=== PATIENT | female | born 1960 | race Caucasian/White ===

== ENCOUNTER 2017-07-30 05:30 | Emergency (ER) | payer OTHER, SELFPAY ==
--- NOTE | 2017-07-30 05:30 | DT_ITS ---
This patient was seen during an EMR downtime July 23, 2017 - July 30, 2017. This patient may have a combination of paper and electronic documentation or all paper documentation. All documentation is viewable within the e-chart portion of [employer] for each patient visit.
--- NOTE | 2017-07-30 09:49 | CT_ITS ---
STUDY: CT ABDOMEN AND PELVIS WITH CONTRAST REASON FOR EXAM: Female, 56 years old. Abdominal pain for one week RADIATION DOSAGE (If Supplied By Facility): CTDIvol = ( 16.94 ) mGy, DLP = ( 1337.49 ) mGycm TECHNIQUE: Transaxial images were obtained from the dome of the diaphragm to the symphysis pubis with oral contrast. 100 ml of Isovue 300 contrast was administered. Sagittal and coronal images were reconstructed. Individualized dose optimization techniques were used for this CT. COMPARISON: 05/09/2013 FINDINGS: There is a pneumatocele at the right lung base. The visualized portions of the heart are within normal limits. There is decreased attenuation of the liver consistent with steatosis. There is a small low-attenuation lesion near the dome of the liver, which may represent a 1 cm cyst. Several large gallstones are present. Normal spleen. Normal pancreas. Normal bilateral adrenal glands. There is a tiny right renal cyst. Normal left kidney. No hydronephrosis, renal or ureteral calculus. Normal visualized stomach. Normal small intestine. There is colon wall thickening involving predominantly the right colon and distal left colon. There are multiple diverticula within the distal left colon. The appendix is visualized and appears normal. There is diffuse atherosclerotic calcification of the abdominal aorta, without a demonstrated aneurysm. Normal inferior vena cava. Normal retroperitoneum. Normal urinary bladder. Normal visualized uterus. Normal abdominal wall. Normal osseous structures. CT/Abdomen/Pelvis WITH Contrast IMPRESSION: Hepatic steatosis. Cholelithiasis. Mild colon wall thickening within the right and left colon may represent colitis. Diffuse diverticulosis within the distal left colon. No bowel obstruction or acute renal pathology. Additional nonacute findings, as detailed above. Electronically Signed: Jesus Burden DO at 10:28 EDT Tel , Service support ,
[2017-07-30 16:47] LABS: Anion Gap 8 (5-15); BUN 37 mg/dL (7-18); BUN/Creat Ratio 33.9 RATIO (10-20); Calcium,Total 10.7 mg/dL (8.5-10.1); Chloride 103 mmol/L (98-107); Creatinine, Serum 1.09 mg/dL (0.55-1.02); EST Glomerular Filtration Rate 56 mL/min (>60); Est Glom Filt Rate - Afr Amer 68 mL/min (>60); Glucose 185 mg/dL (74-106); Potassium 3.7 mmol/L (3.5-5.1); Sodium Level 139 mmol/L (136-145)
[2017-07-31 11:25] LABS: Bedside Glucose 182 mg/dL (70-110)
[2017-07-31 13:47] LABS: Bacteria 0 SEEN /hpf (None Seen); Mucous, Urine 0 SEEN /hpf (<or=2+)
[2017-07-31 13:53] LABS: Color, Urine Yellow (Yellow); Glucose, Dipstick 100 mg/dl (Normal); Ketone-Dipstick Negative (Negative); Leukocyte Esterase-Dipstick 25 /ul (Negative); Nitrite-Dipstick Negative (Negative); Occult Blood-Urine 10 /ul (Negative); Protein-Dipstick Negative (Negative); Specific Gravity, Urine 1.015 (1.002-1.030); Urine Bilirubin Dipstick Negative (Negative); Urine Clarity Sl Cldy (Clear); Urine Urobilinogen Normal (Normal); White Blood Cells 0-5 SEEN /hpf (0-5)
[2017-07-31 13:54] LABS: Red Blood Cells-Urine 0-5 SEEN /hpf (0-5); Squamous Epithelial Cells - UA 0-5 SEEN /hpf (5-10)
[2017-07-31 14:33] LABS: Basophil% 0.2 % (0-1); Eosinophils% 0.7 % (0-5); Hematocrit 39.4 % (37-47); Hemoglobin 12.9 g/dl (12.0-15.0); Lymphocyte % 31.6 % (19-41); Mean Corp Hgb Conc 32.7 g/gl (32-36); Mean Corpuscular Hgb 27.8 pg (27.0-32.0); Mean Corpuscular Volume 84.9 fL (81-99); Mean Platelet Vol. 10.6 fl (6.2-12.0); POSITIVE COUNT NO; POSITIVE DIFFERENTIAL NO; POSITIVE MORPHOLOGY NO; Platelet Count 239 K/mm3 (150-450); RBC Distribution Width CV 14.4 % (11.6-14.6); Red Blood Count 4.64 M/mm3 (4.2-5.4); White Blood Count 5.7 K/mm3 (4.4-11.0)
[2017-07-31 14:34] LABS: Absolute Lymphocyte Count 1.81 X10^3/ul (0.83-4.51); Absolute Neutrophil Count 3.4 X10^3/uL (2.0-7.7); Lymphocyte # 1.81 X10^3/ul (4.0); Neutrophil # 3.37 X10^3/uL (2.7-7.7)
== END 2017-07-30 11:30 | disposition home or self-care (01) ==
PROVIDERS: Emergency Provider Emergency Medicine; Family Provider Family Medicine; PCP Family Medicine
DX: R11.2 Nausea with vomiting, unspecified (principal); R19.7 Diarrhea, unspecified; R10.30 Lower abdominal pain, unspecified; E11.9 Type 2 diabetes mellitus without complications; I10 Essential (primary) hypertension; E78.00 Pure hypercholesterolemia, unspecified; Z87.19 Personal history of other diseases of the digestive system; Z79.899 Other long term (current) drug therapy; Z79.84 Long term (current) use of oral hypoglycemic drugs
CPT/HCPCS: 36415; 74177; 80048; 81001; 82962; 85025; 96374; 99283; Q9967; A4216; J2405

== ENCOUNTER → 2017-07-31 07:19 | Outpatient (CLI) | payer OTHER, SELFPAY | PROVIDERS: Family Provider Family Medicine; PCP Family Medicine; Visit Provider Emergency Medicine | DX: R19.7 Diarrhea, unspecified (principal) | CPT/HCPCS: 87177; 87209; 87493; 87506 ==

== ENCOUNTER → 2018-02-22 14:56 | Outpatient (CLI) | payer OTHER, SELFPAY ==
--- NOTE | 2018-02-22 14:59 | BI_ITS ---
MAMMOGRAPHY - BILATERAL SCREENING REASON FOR EXAM: Female, 57 years old. Routine annual screening examination. PERTINENT HISTORY: Non-contributory. TECHNIQUE: Digital bilateral breast fani (3D mammographic acquisition) in the CC and MLO projections. 2-D mediolateral oblique (MLO) and craniocaudad (CC) views of both breasts were obtained. CAD: Full Field Digital Mammography with Computer Added Detection was performed. COMPARISON: Comparison is made with prior study dated October 14, 2015 and December 04, 2013. FINDINGS: Breast Composition: The breasts are almost entirely fatty. There are no dominant masses or suspicious calcifications. No other significant abnormalities are identified. There has been no significant change since the prior study. BI/SCREENING MAMM (CAD), BILAT IMPRESSION: Stable bilateral screening mammogram. Yearly follow-up mammogram recommended. (A) ASSESSMENT CATEGORY: BIRADS Category 1: Negative. A letter regarding these results will be sent to the patient by the facility within 30 days. Approximately 10% of breast cancers are not detected by mammography. A normal mammogram should not delay biopsy of a clinically suspicious abnormality. [id number] Electronically Signed: Rishabh Kent MD at 9:08 EST Tel [phone], Service support ,
== END ==
PROVIDERS: Family Provider Family Medicine; PCP Family Medicine; Referring Provider Family Medicine; Visit Provider Family Medicine
DX: Z12.31 Encounter for screening mammogram for malignant neoplasm of breast (principal)
CPT/HCPCS: 77063; 77067

== ENCOUNTER → 2018-05-03 05:42 | Outpatient (CLI) | payer OTHER, SELFPAY ==
[2018-05-03 08:07] LABS: ALB/GLOB Ratio 0.9 RATIO (0.9-2.4); AST(SGOT) 58 U/L (15-37); Alanine Aminotransfer ALT/SGPT 62 U/L (13-56); Albumin, Serum 3.6 g/dL (3.2-5.0); Alkaline Phosphatase 53 U/L (45-117); Anion Gap 4 (5-15); BUN 24 mg/dL (7-18); Calcium,Total 9.1 mg/dL (8.5-10.1); Chloride 105 mmol/L (98-107); Cholesterol 120 mg/dL (200); EST Glomerular Filtration Rate 61 mL/min (>60); Est Glom Filt Rate - Afr Amer 74 mL/min (>60); Globulin 3.9 g/dL (2.2-4.2); Glucose 134 mg/dL (74-106); High Density Lipoprotein 42 mg/dL; Protein, Total 7.5 g/dL (6.4-8.2); Sodium Level 138 mmol/L (136-145); Thyroid Stim Hormone (TSH) 1.26 uIU/mL (0.358-3.74); Triglycerides 145 mg/dL; Very Low Density Lipoprotein 29 mg/dL (5-40)
== END ==
PROVIDERS: Family Provider Family Medicine; PCP Family Medicine; Referring Provider Family Medicine; Visit Provider Family Medicine
DX: E11.9 Type 2 diabetes mellitus without complications (principal)
CPT/HCPCS: 36415; 80053; 80061; 84443

== ENCOUNTER → 2019-03-21 05:57 | Outpatient (CLI) | payer OTHER, SELFPAY ==
[2019-03-21 08:01] LABS: ALB/GLOB Ratio 0.8 RATIO (0.9-2.4); AST(SGOT) 55 U/L (15-37); Alanine Aminotransfer ALT/SGPT 82 U/L (13-56); Albumin, Serum 3.6 g/dL (3.2-5.0); Alkaline Phosphatase 72 U/L (45-117); Anion Gap 5 (5-15); BUN 22 mg/dL (7-18); BUN/Creat Ratio 23.1 RATIO (10-20); Calcium,Total 9.7 mg/dL (8.5-10.1); Chloride 106 mmol/L (98-107); Cholesterol 117 mg/dL (200); Creatinine, Serum 0.95 mg/dL (0.55-1.02); EST Glomerular Filtration Rate 64 mL/min (>60); Est Glom Filt Rate - Afr Amer 78 mL/min (>60); Globulin 4.5 g/dL (2.2-4.2); Glucose 158 mg/dL (74-106); High Density Lipoprotein 44 mg/dL; Potassium 3.7 mmol/L (3.5-5.1); Protein, Total 8.1 g/dL (6.4-8.2); Sodium Level 141 mmol/L (136-145); Thyroid Stim Hormone (TSH) 1.14 uIU/mL (0.358-3.74); Triglycerides 118 mg/dL; Very Low Density Lipoprotein 24 mg/dL (5-40)
== END ==
PROVIDERS: PCP Family Medicine; Referring Provider Family Medicine; Visit Provider Family Medicine
DX: E11.9 Type 2 diabetes mellitus without complications (principal)
CPT/HCPCS: 36415; 80053; 80061; 84443

== ENCOUNTER → 2019-03-24 13:55 | Outpatient (CLI) | payer OTHER, SELFPAY ==
[2019-03-25 10:56] LABS: Hepatitis B Surface Antibody Non-Reactive
[2019-03-25 11:01] LABS: Hepatitis C Antibody REACTIVE (Nonreactive)
[2019-03-26 13:57] LABS: Hepatitis B Core Ab Total Negative (Negative)
== END ==
PROVIDERS: PCP Family Medicine; Referring Provider Family Medicine; Visit Provider Family Medicine
DX: R94.5 Abnormal results of liver function studies (principal)
CPT/HCPCS: 36415; 86704; 86706; 86803; 87521

== ENCOUNTER → 2019-03-25 12:04 | Outpatient (CLI) | payer OTHER, SELFPAY ==
--- NOTE | 2019-03-25 14:16 | BI_ITS ---
MAMMOGRAPHY - BILATERAL SCREENING REASON FOR EXAM: Female, 58 years old. Routine annual screening examination. PERTINENT HISTORY: Non-contributory. TECHNIQUE: Digital bilateral breast jennyfer (3D mammographic acquisition) in the CC and MLO projections. 2-D mediolateral oblique (MLO) and craniocaudad (CC) views of both breasts were obtained. CAD: Full Field Digital Mammography with Computer Added Detection was performed. COMPARISON: Comparison is made with prior study dated February 22, 2018 and October 14, 2015. FINDINGS: Breast Composition: The breasts are almost entirely fatty. There are no dominant masses or suspicious calcifications. No other significant abnormalities are identified. There has been no significant change since the prior study. BI/SCREEN MAMM (CAD) W/JENNYFER BILAT IMPRESSION: Stable bilateral screening mammogram. Yearly follow-up mammogram recommended. (A) ASSESSMENT CATEGORY: BIRADS Category 1: Negative. A letter regarding these results will be sent to the patient by the facility within 30 days. Approximately 10% of breast cancers are not detected by mammography. A normal mammogram should not delay biopsy of a clinically suspicious abnormality. [id number] Electronically Signed: Rishabh Kent, at 12:32 EST , Service support ,
[2019-03-28 21:27] LABS: HPV HC, High Risk Negative (Negative)
== END ==
PROVIDERS: PCP Family Medicine; Referring Provider Family Medicine; Visit Provider Family Medicine
DX: Z01.419 Encounter for gynecological examination (general) (routine) without abnormal findings (principal); Z12.31 Encounter for screening mammogram for malignant neoplasm of breast
CPT/HCPCS: 77063; 77067; 87624; 88175; G0145

== ENCOUNTER → 2019-03-26 10:47 | Outpatient (CLI) | payer OTHER, SELFPAY ==
--- NOTE | 2019-03-26 10:49 | US_ITS ---
STUDY: ABDOMINAL ULTRASOUND - RIGHT UPPER QUADRANT REASON FOR VISIT: Female, 58 years old ELEVATED LFT TECHNIQUE: Ultrasound evaluation of the right upper quadrant was performed with real-time and static masters-scale imaging. TECHNICAL QUALITY: Adequate. COMPARISON: None. FINDINGS: Pancreas: Visualized portions of pancreas are unremarkable. Liver: Measures 19.6 cm. Liver shows increased echogenicity. No masses identified. Gallbladder: Multiple gallstones. Negative sonographic Ramos''s sign. Common bile duct: Measures 6 mm. No intraductal stones identified. Right kidney: Measures 11.8 cm in length. Normal contour. 1.5 cm cyst. No masses, stones, or hydronephrosis identified. Renal cortical thickness appears normal. Additional findings: None. US/Liver IMPRESSION: Diffuse hepatic steatosis. Multiple large gallstones, measuring up to 3.8 cm without sonographic evidence of acute cholecystitis. Electronically Signed: Audi Charles, at 16:03 EST Tel , Service support ,
== END ==
PROVIDERS: PCP Family Medicine; Referring Provider Family Medicine; Visit Provider Family Medicine
DX: R94.5 Abnormal results of liver function studies (principal)
CPT/HCPCS: 76705

== ENCOUNTER → 2019-05-12 15:11 | Outpatient (CLI) | payer OTHER, SELFPAY ==
[2019-05-13 10:34] LABS: Hepatitis B Surface Antigen Non-Reactive (Nonreactive)
[2019-05-28 16:07] LABS: Comment 1b (.); HCV Quant. RNA PCR 2420000 IU/mL (.)
[2019-05-28 16:32] LABS: AFP, Tumor Marker 9.9 ng/mL (0.0-8.3); HCV log 10 6.384 (.)
== END ==
PROVIDERS: PCP Family Medicine; Referring Provider Internal Medicine Gastroenterology; Visit Provider Internal Medicine Gastroenterology
DX: B19.20 Unspecified viral hepatitis C without hepatic coma (principal)
CPT/HCPCS: 36415; 82105; 87340; 87522; 87902

== ENCOUNTER → 2019-06-25 07:58 | Outpatient (CLI) | payer OTHER, SELFPAY ==
--- NOTE | 2019-06-24 | TISS_PTH ---
PATIENT: BRI BARAKAT LOC: [facility] U#:[id number] AGE/SX: 64/F ROOM: RE06/25/[address]: Dr. Good Rodriguez MD : 1960 BED: DIS: SPEC #: [id number] RECD: 06/24/19 17:32 STATUS: JAYNE SAMIRA #: [id number] YAKOV: 06/24/19 00:[address]: Good Rodriguez DEPT: SURGICAL PATHOLOGY RECD BY: Pablo Dunn Tissues: Skin of wrist and hand Procedures: Surgery Specimen Level IV HEADER OPERATION: Shave biopsy right wrist PRE-OP DIAGNOSIS: Rule out SCC TISSUE SUBMITTED: Shave biopsy right wrist MICROSCOPIC DIAGNOSIS Skin lesion of right wrist, shave biopsy: Verrucoid keratosis. Solar elastosis. Parakeratosis. See comment. AM:veronica 06/26/19 COMMENT The lesion is transected at the base. Clinical correlation is suggested. MICROSCOPIC DESCRIPTION Slides are reviewed. GROSS DESCRIPTION Received in fixative is one container labeled with the patient's name and designated right wrist. The specimen consists of a light vang shaved biopsy of skin measuring 7 cm in diameter and 1 cm in thickness. The specimen is totally submitted in one cassette for postfixation sectioning. / AM:veronica 06/25/19 TC:5 [facility]: [id number]
== END ==
PROVIDERS: PCP Family Medicine; Referring Provider Family Medicine; Visit Provider Family Medicine
DX: R23.4 Changes in skin texture (principal); L57.8 Other skin changes due to chronic exposure to nonionizing radiation; L57.0 Actinic keratosis; L98.9 Disorder of the skin and subcutaneous tissue, unspecified
CPT/HCPCS: 88305

== ENCOUNTER → 2019-06-30 13:29 | Outpatient (CLI) | payer OTHER, SELFPAY ==
[2019-06-30 13:02] VITALS: BMI 43.2
[2019-06-30 13:59] LABS: International Normalized Ratio 0.9; Prothrombin Time (Protime)PT. 11.9 SECONDS (11.7-14.9)
[2019-06-30 14:12] LABS: AST(SGOT) 47 U/L (15-37); Alanine Aminotransfer ALT/SGPT 83 U/L (13-56); Albumin, Serum 3.9 g/dL (3.2-5.0); Alkaline Phosphatase 80 U/L (45-117); Anion Gap 7 (5-15); BUN 28 mg/dL (7-18); Calcium,Total 10.5 mg/dL (8.5-10.1); Chloride 104 mmol/L (98-107); Creatinine, Serum 1.12 mg/dL (0.55-1.02); EST Glomerular Filtration Rate 53 mL/min (>60); Est Glom Filt Rate - Afr Amer 65 mL/min (>60); Globulin 4.7 g/dL (2.2-4.2); Glucose 187 mg/dL (74-106); Potassium 4.5 mmol/L (3.5-5.1); Protein, Total 8.6 g/dL (6.4-8.2); Sodium Level 140 mmol/L (136-145)
== END ==
PROVIDERS: PCP Family Medicine; Referring Provider Surgery; Visit Provider Surgery
DX: B19.20 Unspecified viral hepatitis C without hepatic coma (principal); K80.20 Calculus of gallbladder without cholecystitis without obstruction
CPT/HCPCS: 36415; 80048; 80076; 85610

== ENCOUNTER → 2019-07-04 14:16 | Outpatient (CLI) | payer OTHER, SELFPAY ==
[2019-06-30 13:02] VITALS: BMI 43.2
--- NOTE | 2019-07-04 14:18 | CT_ITS ---
STUDY: CT ABDOMEN WITH CONTRAST REASON FOR EXAM: Female, 58 years old. PT STATED F/U TO LIVER CYST, PRE MADAY SX RADIATION DOSAGE (If Supplied By Facility): CTDIvol = ( 16.8 ) mGy, DLP = ( 816.60 ) mGycm TECHNIQUE: Transaxial images were obtained post I.V. administration of IV 100mL Isovue-300, and oral contrast. Sagittal and coronal images were reconstructed. Individualized dose optimization techniques were used for this CT. COMPARISON: Comparison is made with prior examination dated July 30, 2017. FINDINGS: Stable 1.7 cm x 2.2 cm pneumatocele in the right lower lobe. Coronary artery calcification. There is decreased attenuation of the liver consistent with steatosis. There are multiple gallstones. Normal spleen. Normal pancreas. Normal bilateral adrenal glands. Tiny cyst in the anterior lower aspect of the right kidney. Normal left kidney. Normal visualized stomach. Normal small intestine. Normal colon. The appendix is visualized and appears normal. There is scattered atherosclerotic calcification of the abdominal aorta, without a demonstrated aneurysm. Normal inferior vena cava. There is borderline retroperitoneal lymphadenopathy with enlarged nodes no greater than 10mm in the short axis diameter. Normal abdominal wall. Normal osseous structures. CT/Abdomen WITH IV Contrast IMPRESSION: Hepatic steatosis. Cholelithiasis. Electronically Signed: Rishabh Kent, at 14:51 EDT , Service support ,
== END ==
LOC: CT 14:18
PROVIDERS: PCP Family Medicine; Referring Provider Surgery; Visit Provider Surgery
DX: K76.89 Other specified diseases of liver (principal)
CPT/HCPCS: 74160; Q9967

== ENCOUNTER 2019-07-15 08:59 | Day surgery (SDC) | payer OTHER, SELFPAY ==
--- NOTE | 2019-06-30 01:33 | HP_ITS ---
Intake Vital Signs 06/30/19 Height 5 ft 5 in 06/30/19 Weight: 230 lb 06/30/19 BMI 38.2 06/30/19 BP 105/71 06/30/19 Blood Pressure Location Rt brachial 06/30/19 Position Sitting 06/30/19 Respiration 18 06/30/19 Pulse 69 06/30/19 Pulse Source Monitor 06/30/19 Temp 96.3 F L 06/30/19 Temp Source Temporal 06/30/19 Pulse Oximetry (%) 97 06/30/19 Oxygen Delivery Method room air Intake Visit Reasons: Abdominal Pain Chief Complaint: abdominal pain Patient Flow Coordinator Required: No Accompanied by: Is patient in pain?: Yes Allergies morphine Allergy (Intermediate, Verified 06/30/19 12:54) headaches Medications Exenatide Microspheres [Bydureon] 2 mg SQ QWEEK 05/10/13 [History Confirmed 06/30/19] Fenofibrate [Tricor] 145 mg PO DAILY 05/10/13 [History Confirmed 06/30/19] Lisinopril/Hydrochlorothiazide [Zestoretic Tablet] 1 tab PO DAILY 05/10/13 [History Confirmed 06/30/19] Multivitamins,Therapeutic [Multivitamin] 1 tab PO DAILY 05/10/13 [History Confirmed 06/30/19] Pravastatin [Pravachol] 40 mg PO DAILY 05/10/13 [History Confirmed 06/30/19] canagliflozin 100 mg tablet ea PO 06/30/19 [History Confirmed 06/30/19] cholecalciferol (vitamin D3) 250 mcg (10,000 unit) tablet 2,500 unit PO DAILY tab 06/30/19 [History Confirmed 06/30/19] citalopram 20 mg tablet ea PO 06/30/19 [History Confirmed 06/30/19] cyanocobalamin-liver extract tab PO DAILY tab 06/30/19 [History] pantoprazole 40 mg tablet,delayed release 40 mg PO DAILY #30 tab 06/30/19 [Rx Confirmed 06/30/19] [facility] Medical History (Updated 06/30/19 @ 13:[address] Malini Calero MD) GERD (gastroesophageal reflux disease) (Acute) Hepatitis C (Acute) Hypertension (Chronic) Hyperlipidemia (Chronic) Diabetes mellitus type II (Chronic) Abdominal pain (Acute) Gallstones (Acute) Surgical History (Updated 06/30/19 @ 12:52 by Nathaly Carbajal) History of (Acute) history surgery left eye (Acute) Family History (Updated 06/30/19 @ 12:53 by Nathaly Carbajal) Mother Diabetes Hypertension Heart disease High cholesterol CVA (cerebral vascular accident) Social History (Updated 06/30/19 @ 13:[address] Malini Calero MD) Smoking Status: Former smoker alcohol intake: never substance use type: does not use HPI HPI HPI: BRI BARAKAT, is a 58 F who presents to the office today for HPI HPI Surgical H&P: Yes HPI: BRI BARAKAT, is a 58 F who presents to the office today for cholelithiasis, epigastric pain, elevated liver functions. Patient states for a couple years she has had some constant epigastric discomfort. Currently rates it a 4/10 but states it can go up to 10+ typically may last at the higher levels about 30 minutes to an hour. Patient states that spicy foods can make it worse or if she is full after meal patient also states that greasy food and cause pain about 2 hours after eating does not really have an issue with better last night did have some pizza and had some diarrhea and abdominal discomfort this morning but nothing last night. Patient denies ever having an EGD. Patient has had elevations of AST and ALT's since 2013 per our records but normal bilirubin. Patient has been seen Dr. Tamez per patient she got a liver elastography done at [facility] which showed some possible fibrosis. Patient was hepatitis C positive on her blood work (child's class A per most recent blood work), appears to be type Ib. Patient has not been able to follow-up with Dr. Tamez due to his office being closed during this COVID. Patient did have a previous CT abdomen pelvis which showed probable liver cyst as well as gallstones about 3.8 cm the largest one that was in 2018, ultrasound liver recently did show fatty liver as well as 2 large gallstones 1 about 3.9 cm the other about 1.9 cm, gallbladder wall 2.3 mm, common bile duct 5.5 mm no pericholecystic fluid no lesions seen in the liver. Patient states she has been taking omeprazole 20 mg p.o. [id number] states it occasionally works but not all the time. Patient states she is able to drink and eat?patient does try to avoid tomatoes/onion/milk and spicy/greasy foods. ROS General General: Yes fatigue; no weight change, colon cancer, breast cancer or weakness HEENT HEENT: Yes eye surgery; no difficulty swallowing, eye injury, swollen glands or hoarseness Endo Endocrine: Yes diabetes mellitus; no thyroid disease, thyroid cancer, Hair loss, heat intolerance or cold intolerance Skin Skin: No rash or changing moles Breast Breast: No left breast lump, right breast lump, breast pain, abnormal mammogram, abnormal US or breast enlargement Musc Musculoskeletal: No back problems, arthritis, rheumatoid arthritis, gout or joint pain Cardio Cardiovascular: Yes high blood pressure; no pacemaker, heart disease, atrial fibrillation, heart attack, heart stent, palpitations, shortness of breat with exertion or chest pain Psych Psychiatric: No depression, anxiety or hearing voices Resp Respiratory: No shortness of breath, No sleep apnea, No cough, No COPD, No asthma, No emphysema, No wheezing Gastro Gastrointestinal: Yes abdominal pain, No nausea or vomiting, Yes diarrhea, Yes constipation, No blood in stool, Yes acid reflux, Yes hemorrhoids, No ulcers, Yes gallbladder problem, No black,tarry stools Jaun Hematologic: No blood thinners, No blood disorders, No bleeding, No anemia, No blood clots Neuro Neurologic: No system reviewed and no additional complaints, except as docu, No as per HPI, No abnormal walking, No abnormal hearing, No abnormal movements, No abnormal speech, No behavioral changes, No burning sensations, No confusion, No seizure-like activity, No unsteadiness, No dizziness, No localized weakness, No frequent falls, No headache(s), No lack of coordination, No loss of vision, No memory loss, No numbness, No other visual disturbances, No radiating pain, No restless legs, No sensory deficit, No fainting, No tingling, No tremor(s), No weakness, No other Exam Const General: cooperative, no acute distress, well developed Nutritional Appearance: obese HENMT Head: atraumatic Resp Effort & Inspection: normal respiratory effort Cardio Rhythm: regular rhythm GI Inspection: non-distended, obesity Palpation: soft, no hernias, tender in the epigastrum, in the LUQ and in the RUQ; Negative for Ramos's sign negative or with no rebound tenderness Neuro General: oriented x3 Extrem General: no clubbing, cyanosis or edema Psych Affect: normal affect Assessment & Plan Problems 1. Cholelithiasis K80.20 2. GERD (gastroesophageal reflux disease) K21.9 3. Hepatitis C B19.20 Plan We will start patient on pantoprazole 40 mg p.o. daily for her reflux as the omeprazole is not really working for her. Also plan to get a CT abdomen pelvis as her CT abdomen pelvis from 2018 did show possible liver cyst, discussed with the radiologist recommended a repeat especially do to her new status of hepatitis C. Also check BMP and liver profile as well as INR. Once work-up is complete we will plan to schedule laparoscopic cholecystectomy with cholangiograms. Reviewed the anatomy with the patient and discussed the procedure: laparoscopic cholecystectomy with cholangiograms, possible open. Review risks including but not limited to bleeding, infection, hernia?discussed with patient she will have a larger incision at the umbilicus due to her large gallstones, bile leak, retained gallstones requiring another procedure ERCP- Endoscopic Retrograde Cholangiopancreatography, injury to another organ (bile ducts, common bile duct, small bowel, etc.) may require transfer to tertiary care facility and conversion to an open procedure. Did discuss with patient that all her pain may not be taken away with removing the gallbladder she does have hepatitis C AST and ALT is are under 100 as well as GERD. All questions were answered patient was agreeable to proceed. Malini Calero M.D. Pager: [phone] [facility] [address] [place] [address], [facility], [address] [place] [address] Office: [phone] Orders Orders: Abdomen WITH IV Contrast Today K76.89 Basic Metabolic Profile (BMP) Today B19.20, K80.20 Liver Profile Today B19.20, K80.20 Prothrombin Time w/INR Today B19.20, K80.20 Medications New: pantoprazole 40 mg PO DAILY 30 tabs 3RF Plan Detail Follow Up Patient is scheduled for CT abdomen pelvis for Sunday and will get lab work done today and will schedule surgery after CT scan completed Coding Level of Care Code Off vis,new,level 3 Diagnoses Cholelithiasis K80.20 GERD (gastroesophageal reflux disease) K21.9 Hepatitis C B19.20 06/30/19 1333 <Electronically signed by Malini Clemons am, MD> Date _ Malini Calero MD I have examined the patient the following changes are noted: Patient CT abdomen pelvis not show obvious liver cyst at this time. Patient states her pain has been tolerable and has gotten a little bit of improvement of symptoms with the pantoprazole which she will continue as well after surgery. We discussed the current risks associated with COVID-19. While it is understood that there is a community spread of COVID-19, the risk of maddie COVID-19 while at [facility] ([facility]) is very low; however, the risk cannot be completely mitigated because of the community spread of the disease. We discussed in detail the risk of exposure to and/or potential harm posed by the COVID-19 virus with having a surgery/procedure at this time versus the risk of delaying the surgery/procedure. It is not possible to know either the risk of delaying the surgery or procedure or chance of getting an infection with perfect accuracy, but a joint decision was made to proceed at this time with the scheduled surgery/procedure as indicated on the consent form. Patient was notified that we will need to comply with any screening or testing [facility] wishes to perform or that surgery may be delayed for any positive results--patient was negative for COVID. Malini Calero M.D. Pager: [phone] [facility] [address] [place] [address], [address] [place] [address] Office: [phone]
[2019-06-30 13:02] VITALS: BMI 43.2
[2019-07-15] VITALS (7 sets, daily range): BP systolic 105–119; BP diastolic 47–79; PULSE 62–80; RESP 16; TEMP 35.9–36.6; O2SAT 93–95; BMI 41.9
--- NOTE | 2019-07-15 | GALL_PTH ---
PATIENT: BRI BARAKAT [place] [id number] AGE/SX: 58/F ROOM: RE07/15/[address]: Dr. Malini Calero MD : 1960 BED: DIS: 07/15/2019 SPEC #: [id number] RECD: 07/15/19 14:55 STATUS: JAYNE SAMIRA #: [id number] YAKOV: 07/15/19 00:[address]: Malini Calero DEPT: SURGICAL PATHOLOGY RECD BY: Alfredo Leiva ENTERED: 07/16/19 12:01 SP TYPE: SALINA GUILLEN DR: Dr. Good Rodriguez MD Tissues: Gallbladder, NOS Procedures: Surgery Specimen Level III HEADER OPERATION: Laparoscopic cholecystectomy PRE-OP DIAGNOSIS: Cholelithiasis; GERD; hepatitis C TISSUE SUBMITTED: Gallbladder MICROSCOPIC DIAGNOSIS Gallbladder, cholecystectomy: Chronic cholecystitis and cholelithiasis. Focal dysplastic epithelium. AM:veronica 07/17/19 MICROSCOPIC DESCRIPTION Slides are reviewed. GROSS DESCRIPTION Received is one container labeled with the patient's name and designated gallbladder. The specimen consists of a previously, partially opened gallbladder measuring 10 cm in length and up to 4 cm in diameter. The external surface is pink-vang, smooth and glistening for the most part. Focally it is granular, hemorrhagic and contains cautery artifact. The gallbladder contains a small amount of hemorrhagic bile. Present in the container are two greenish-brown, multifaceted stones measuring 3 and 4.5 cm in greatest dimension. The mucosa is focally ulcerated. The gallbladder wall measures up to 0.4 cm in thickness. Licensing Coordinator sections from the gallbladder and the cystic duct are submitted in one cassette. / SJ:veronica 07/16/19 TC:5 [facility]: [id number]
--- NOTE | 2019-07-15 09:04 | EKG12_ITS ---
Test Reason : PRE-OP Blood Pressure : / mmHG Vent. Rate : 066 BPM Atrial Rate : 066 BPM P-R Int : 156 ms QRS Dur : 098 ms QT Int : 424 ms P-R-T Axes : 029 -34 -02 degrees QTc Int : 444 ms Normal sinus rhythm Left axis deviation Abnormal ECG Confirmed by MOSES TOPETE, ZEKE ([id number]), editor at large ELIZABETH CASTILLO ([id number]) on 07/17/2019 3:14:49 PM Referred By: Malini Calero Confirmed By:ZEKE LOPES MD
[2019-07-15 09:27] LABS: Hematocrit 40.8 % (37-47); Mean Corp Hgb Conc 31.9 g/dL (32-36); Mean Corpuscular Hgb 27.5 pg (27.0-32.0); Mean Corpuscular Volume 86.3 fL (81-99); Mean Platelet Vol. 10.4 fl (6.2-12.0); Platelet Count 213 K/mm3 (150-450); RBC Distribution Width SD 43.9 fl (35.1-43.9); Red Blood Count 4.73 M/mm3 (4.2-5.4); White Blood Count 7.7 K/mm3 (4.4-11.0)
[2019-07-15] MEDS: Lactated Ringers 1,000 ML 100 ML IV (09:40)
[2019-07-15 10:00] LABS: Bedside Glucose 157 mg/dL (70-110)
[2019-07-15] MEDS: Bupivacaine Mpf 0.5% 30 ML VIAL (12:24)
--- NOTE | 2019-07-15 12:31 | PCM.OPRPT ---
Report of Operation Date of Procedure: 07/15/19 Pre-Operative Diagnosis: Symptomatic cholelithiasis, hepatitis C Post-Operative Diagnosis: Same Surgery/Procedure Performed:: Laparoscopic cholecystectomy Type of Anesthesia:: General/Supplemental Anesthesiologist: Oz Kearns Special Medications: Cefotetan 2 g IV x1 Specimen's removed: Gallbladder and gallstones Estimated Blood Loss (mL): 10 cc Fluids Replaced: 1500 cc Description of Procedure: Indications this is a 58 year-old female who developed abdominal pain/nausea/vomiting and on workup was found to have cholelithiasis and newly diagnosed hepatitis C, with a normal common bile duct. Laparoscopic cholecystectomy was elected. Description procedure: The patient was placed on operating table in supine position. General Anesthesia was induced. A timeout was completed verifying correct patient, procedure, site, position and special equipment prior to beginning procedure. The abdomen was prepped and draped in usual sterile fashion. An incision was made in the natural skin line above the umbilicus. The fascia was elevated and incised. The peritoneum was elevated and incised. Entry into the peritoneum was confirmed visually and no bowel was noted in the vicinity of the incision. Walker trocar was placed. The abdomen was insufflated with carbon dioxide to a pressure of 12-15 mmHg. Patient tolerated insufflation well. The laparoscope was then inserted and abdomen inspected. No injuries from initial trocar placement were noted. Additional trochars were then inserted in the following locations 5 mm trocar in the epigastrium and 2 more 5 mm trochars along the right costal margin. The abdomen was inspected, the liver was nodular consistent with known cirrhosis. The table is placed in reverse Trendelenburg position with the right side up. The adhesions between the gallbladder and omentum were lysed sharply. The dome of the gallbladder was grasped with atraumatic grasper passed through the lateral port and retracted over the dome of the liver. Infundibulum was then grasped with atraumatic grasper through the midclavicular port and retracted to the right lower quadrant. This maneuver exposed Calot's triangle. The peritoneum overlying the gallbladder infundibulum was then incised and cystic duct and artery identified and circumferentially dissected. Due to the dense adhesions as well as posterior facing cystic duct and large 4 cm gallstone stuck at the neck of the gallbladder unable to obtain cholangiograms. The cystic duct and artery were then doubly clipped and divided close to the gallbladder. The gallbladder then dissected from its peritoneal attachments by electrocautery. Hemostasis was checked and the gallbladder and contained stones were removed using the endoscopic retrieval bag through the umbilical port after it was enlarged to accommodate the gallstones. The gallbladder is passed off table as specimen. The gallbladder fossa was copiously irrigated with saline and hemostasis obtained. There is no evidence of bleeding from the gallbladder fossa or cystic artery leakage of bile from the cystic duct stump. Secondary trochars removed under direct vision. No bleeding was noted the trocar sites. The laparoscope was withdrawn and umbilical trocar removed. The abdomen was allowed to collapse. The fascia of the 12 mm trocar was closed with 3 [id number] 0 Vicryl suture. The skin was closed with sutures of 4-0 Monocryl and Steri-Strips. The orogastric tube was removed and the patient was extubated. The patient tolerated procedure well and was taken to the postanesthesia care unit in stable condition. - Complications None
--- NOTE | 2019-07-15 12:35 | PCM.DC.GB ---
Discharge Diet: Light diet - advance as tolerated Discharge Activity: May not drive while taking narcotic pain medications. Lifting Restrictions: no lifting > 20 lbs x 2 wks, no strenous exercise for 6 wks Call your doctor if your incision/area has: Continuous Slow Oozing, Sudden Increased Bleeding, Increased Pain/ Swelling, Increased Redness, Foul Smelling Discharge, Swelling at the incision site Call your doctor if you observe: Fever of 101 or Higher Remove Dressing in (days):: 1 - Okay to remove op sites tomorrow, keep Steri-Strips on for 7 to 10 days but no follow-up in 10 days okay to remove Additional Instructions: Okay to take ibuprofen 400-600 mg PO q6hr PRN along with the Percocet. Avoid Tylenol since there is already Tylenol in the Percocet. Take all pain meds with food. Percocet can cause constipation recommend taking daily stool softener (i.e. Colace/docusate) while taking the pain meds. Recommend starting some MiraLAX in 1 to 2 days if no bowel movement. If still no bowel movement following day recommend taking magnesium citrate half the bottle and waiting 4-6 hours if still no results take the other half the bottle. Allergies/Adverse Reactions: Allergies morphine Allergy (Intermediate, Verified 07/15/19 09:31) headaches Medications to take at Discharge Exenatide Microspheres [Bydureon] 2 mg SQ BACK 05/10/13 Fenofibrate [Tricor] 145 mg PO DAILY 05/10/13 Lisinopril/Hydrochlorothiazide [Zestoretic 20/25 Tablet] 1 tab PO DAILY 05/10/13 Multivitamins,Therapeutic [Multivitamin] 1 tab PO DAILY 05/10/13 Pravastatin [Pravachol] 40 mg PO DAILY 05/10/13 cholecalciferol (vitamin D3) 250 mcg (10,000 unit) tablet 2,500 unit PO DAILY tab 06/30/19 citalopram 20 mg tablet 20 ea PO DAILY 06/30/19 pantoprazole 40 mg tablet,delayed release 40 mg PO DAILY #30 tab 06/30/19 Cyanocobalamin (Vitamin B-12) [Vitamin B12] 2,500 mcg PO DAILY 07/10/19 Oxycodone HCl/Acetaminophen [Percocet 5/325] 1 - 2 tab PO Q6H PRN PRN 5 Days #25 tab 07/15/19 The following prescriptions were given: Oxycodone HCl/Acetaminophen [Percocet 5/325] 1 - 2 tab PO Q6H PRN PRN 5 Days #25 tab PRN Reason: Pain Transmission Status: Received by [facility] [id number] Primary Care Physician: Brain Rodriguez MD [Primary Care Provider] - Test Results: Test results from this visit will be discussed in further detail at your follow-up appointment, if applicable. Please Follow Up With: Malini Calero MD - After 5 PM and on the weekends call [phone] with any concerns When: Call the office for follow-up appointment in 2 weeks may be phone or [employer] Proposed Discharge Date: 07/15/19
[2019-07-15 12:56] LABS: Bedside Glucose 225 mg/dL (70-110)
== END 2019-07-15 14:04 | disposition home or self-care (01) ==
LOC: SDC 09:01 → AC 09:02
PROVIDERS: Anesthesiology; PCP Family Medicine; Referring Provider Surgery; Visit Provider Surgery
PROC: (CPT 47610; principal; 2019-07-15 10:40)
DX: K80.10 Calculus of gallbladder with chronic cholecystitis without obstruction (principal); Z79.899 Other long term (current) drug therapy; K21.9 Gastro-esophageal reflux disease without esophagitis; I10 Essential (primary) hypertension; E78.5 Hyperlipidemia, unspecified; E11.9 Type 2 diabetes mellitus without complications; B19.20 Unspecified viral hepatitis C without hepatic coma; Z87.891 Personal history of nicotine dependence; F41.9 Anxiety disorder, unspecified; Z11.59 Encounter for screening for other viral diseases; Z79.84 Long term (current) use of oral hypoglycemic drugs
CPT/HCPCS: 47562; 36415; 82962; 85027; 87635; 88304; 93005; G2023; J7120; J2405; U0004

== ENCOUNTER → 2019-12-22 06:00 | Outpatient (CLI) | payer OTHER, SELFPAY ==
[2019-07-28 13:14] VITALS: BMI 41.9
[2019-12-22 07:59] LABS: ALB/GLOB Ratio 0.9 RATIO (0.9-2.4); AST(SGOT) 31 U/L (15-37); Alanine Aminotransfer ALT/SGPT 42 U/L (13-56); Albumin, Serum 3.7 g/dL (3.2-5.0); Alkaline Phosphatase 59 U/L (45-117); Anion Gap 5 (5-15); BUN 23 mg/dL (7-18); BUN/Creat Ratio 24.1 RATIO (10-20); Calcium,Total 9.8 mg/dL (8.5-10.1); Chloride 105 mmol/L (98-107); Cholesterol 141 mg/dL (200); Creatinine, Serum 0.96 mg/dL (0.55-1.02); EST Glomerular Filtration Rate 64 mL/min (>60); Est Glom Filt Rate - Afr Amer 78 mL/min (>60); Globulin 4.3 g/dL (2.2-4.2); Glucose 158 mg/dL (74-106); High Density Lipoprotein 43 mg/dL; Potassium 3.8 mmol/L (3.5-5.1); Sodium Level 139 mmol/L (136-145); Triglycerides 167 mg/dL; Very Low Density Lipoprotein 33 mg/dL (5-40)
== END ==
PROVIDERS: PCP Family Medicine; Referring Provider Family Medicine; Visit Provider Family Medicine
DX: E11.9 Type 2 diabetes mellitus without complications (principal)
CPT/HCPCS: 36415; 80053; 80061

== ENCOUNTER → 2020-04-23 05:56 | Outpatient (CLI) | payer OTHER, SELFPAY ==
[2019-07-28 13:14] VITALS: BMI 41.9
[2020-04-23 08:05] LABS: AST(SGOT) 37 U/L (15-37); Alanine Aminotransfer ALT/SGPT 51 U/L (13-56); Alkaline Phosphatase 55 U/L (45-117); Anion Gap 6 (5-15); BUN 27 mg/dL (7-18); BUN/Creat Ratio 24.1 RATIO (10-20); Calcium,Total 9.8 mg/dL (8.5-10.1); Chloride 103 mmol/L (98-107); Cholesterol 160 mg/dL (200); Creatinine, Serum 1.12 mg/dL (0.55-1.02); EST Glomerular Filtration Rate 53 mL/min (>60); Est Glom Filt Rate - Afr Amer 64 mL/min (>60); Glucose 157 mg/dL (74-106); High Density Lipoprotein 44 mg/dL; Potassium 3.7 mmol/L (3.5-5.1); Sodium Level 139 mmol/L (136-145); Thyroid Stim Hormone (TSH) 0.99 uIU/mL (0.358-3.74); Triglycerides 163 mg/dL; Very Low Density Lipoprotein 33 mg/dL (5-40)
[2020-04-25 03:06] LABS: HCV Quant. RNA PCR HCV Not Detected IU/mL (.)
== END ==
PROVIDERS: PCP Family Medicine; Referring Provider Internal Medicine Gastroenterology; Visit Provider Internal Medicine Gastroenterology
DX: E11.65 Type 2 diabetes mellitus with hyperglycemia (principal); B18.2 Chronic viral hepatitis C
CPT/HCPCS: 36415; 80053; 80061; 84443; 87522

== ENCOUNTER 2021-03-30 05:57 | Outpatient (CLI) | payer OTHER, SELFPAY ==
[2021-03-30 07:37] LABS: AST(SGOT) 35 U/L (15-37); Alanine Aminotransfer ALT/SGPT 49 U/L (13-56); Albumin, Serum 4.1 g/dL (3.2-5.0); Alkaline Phosphatase 59 U/L (45-117); Anion Gap 6 (5-15); BUN 27 mg/dL (7-18); BUN/Creat Ratio 22.9 RATIO (10-20); Chloride 101 mmol/L (98-107); Cholesterol 190 mg/dL (200); Creatinine, Serum 1.18 mg/dL (0.55-1.02); EST Glomerular Filtration Rate 50 mL/min (>60); Est Glom Filt Rate - Afr Amer 60 mL/min (>60); Globulin 4.3 g/dL (2.2-4.2); Glucose 201 mg/dL (74-106); High Density Lipoprotein 37 mg/dL; Potassium 3.8 mmol/L (3.5-5.1); Protein, Total 8.4 g/dL (6.4-8.2); Sodium Level 137 mmol/L (136-145); Triglycerides 277 mg/dL; Very Low Density Lipoprotein 55 mg/dL (5-40)
== END 2021-03-30 23:59 | disposition home or self-care (01) ==
LOC: LAB 05:58
PROVIDERS: PCP Family Medicine; Referring Provider Family Medicine; Visit Provider Family Medicine
DX: E11.65 Type 2 diabetes mellitus with hyperglycemia (principal)
CPT/HCPCS: 36415; 80053; 80061

== ENCOUNTER → 2021-07-15 | Outpatient (CLI) | payer OTHER, SELFPAY ==
--- NOTE | 2021-07-15 12:57 | US_ITS ---
STUDY: THYROID ULTRASOUND REASON FOR EXAM: Female, 60 years old. THYROID NODULE FELT BY DOCTOR TECHNIQUE: Ultrasound evaluation of the thyroid was performed with real-time and static masters-scale imaging. COMPARISON: None. FINDINGS: RIGHT LOBE: The right lobe of the thyroid gland measures 4.7 x 1.8 x 1.2 cm. There is a homogeneous echotexture. There are no demonstrated solid, cystic or complex lesions. There is a tiny colloid cyst in the right lobe. LEFT LOBE: The left lobe of the thyroid gland measures 3.9 x 1.4 x 1.2 cm. There is a homogeneous echotexture. There are no demonstrated solid, cystic or complex lesions. ISTHMUS: The isthmus measures 4 mm thick. . The regional lymph nodes are normal. US/Thyroid IMPRESSION: Normal ultrasound examination of the thyroid. Electronically Signed: German Dockery MD at 9:14 EDT ,
== END | disposition home or self-care (01) ==
PROVIDERS: PCP Family Medicine; Referring Provider Family Medicine; Visit Provider Family Medicine
DX: E04.1 Nontoxic single thyroid nodule (principal)
CPT/HCPCS: 76536

== ENCOUNTER → 2021-11-08 | Outpatient (CLI) | payer OTHER, SELFPAY ==
--- NOTE | 2021-11-08 06:21 | CT_ITS ---
HISTORY: HX OF NICOTINE DEPENDENCY. TECHNIQUE: Helically acquired images were obtained of the chest without contrast. A radiation dose optimization technique was used for this scan. 921 images. COMPARISON: None. FINDINGS: LARGE AIRWAYS: Grossly patent. LUNGS: 2 mm calcified right upper lobe granuloma posteriorly. Mild emphysema with right lower lobe blebs. PLEURA: No pneumothorax or significant pleural effusion. HEART/PERICARDIUM: Heart within normal limits in size. Coronary artery calcification present. No pericardial effusion. VESSELS: Thoracic aorta nondilated. MEDIASTINUM/FANTASMA: No pathologically enlarged adenopathy. BONES: Intact. CT/Low Dose CT Lung Screening IMPRESSION: Small calcified right upper lobe granuloma and blebs in the right lower lobe. Lung-RADS category 1: Negative. Continue annual screening with low dose CT. Electronically Signed: Emilie Brown MD at 10:09 EDT ,
[2021-11-08 07:28] LABS: Hematocrit 40.5 % (37-47); Hemoglobin 12.5 g/dL (12.0-15.0); Mean Corp Hgb Conc 30.9 g/dL (32-36); Mean Corpuscular Hgb 26.5 pg (27.0-32.0); Mean Corpuscular Volume 85.8 fL (81-99); Mean Platelet Vol. 10.8 fl (6.2-12.0); Platelet Count 219 K/mm3 (150-450); RBC Distribution Width SD 47.2 fl (35.1-43.9); Red Blood Count 4.72 M/mm3 (4.2-5.4); White Blood Count 6.8 K/mm3 (4.4-11.0)
[2021-11-08 08:07] LABS: Insulin 18.6 mU/L (2.6-37.6)
[2021-11-08 08:21] LABS: AST(SGOT) 28 U/L (15-37); Alanine Aminotransfer ALT/SGPT 41 U/L (13-56); Albumin, Serum 3.9 g/dL (3.2-5.0); Alkaline Phosphatase 55 U/L (45-117); Anion Gap 9 (5-15); BUN 24 mg/dL (7-18); BUN/Creat Ratio 23.8 RATIO (10-20); Calcium,Total 9.6 mg/dL (8.5-10.1); Chloride 104 mmol/L (98-107); Cholesterol 176 mg/dL (200); Creatinine, Serum 1.01 mg/dL (0.55-1.02); EST Glomerular Filtration Rate 60 mL/min (>60); Est Glom Filt Rate - Afr Amer 72 mL/min (>60); Glucose 193 mg/dL (74-106); High Density Lipoprotein 40 mg/dL; Potassium 3.7 mmol/L (3.5-5.1); Protein, Total 7.9 g/dL (6.4-8.2); Sodium Level 140 mmol/L (136-145); Thyroid Stim Hormone (TSH) 2.25 uIU/mL (0.358-3.74); Triglycerides 273 mg/dL; Very Low Density Lipoprotein 55 mg/dL (5-40)
[2021-11-09 13:05] LABS: C-Peptide 5.2 ng/mL (1.1-4.4)
== END | disposition home or self-care (01) ==
LOC: CT 05:58
PROVIDERS: PCP Family Medicine; Referring Provider Internal Medicine Pulmonary Disease; Visit Provider Internal Medicine Pulmonary Disease
DX: Z12.2 Encounter for screening for malignant neoplasm of respiratory organs (principal); E11.9 Type 2 diabetes mellitus without complications; Z87.891 Personal history of nicotine dependence; R05.9 Cough, unspecified; J30.9 Allergic rhinitis, unspecified
CPT/HCPCS: 36415; 71271; 80053; 80061; 83525; 84443; 84681; 85027

== ENCOUNTER → 2022-04-18 | Outpatient (CLI) | payer OTHER, SELFPAY ==
--- NOTE | 2022-04-18 12:53 | BI_ITS ---
MAMMOGRAPHY - BILATERAL SCREENING REASON FOR EXAM: Female, 61 years old. Routine annual screening examination. PERTINENT HISTORY: Non-contributory. TECHNIQUE: Digital bilateral breast jennyfer (3D mammographic acquisition) in the CC and MLO projections. 2-D mediolateral oblique (MLO) and craniocaudad (CC) views of both breasts were obtained. CAD: Full Field Digital Mammography with Computer Added Detection was performed. COMPARISON: Comparison is made with prior study dated 03/25/2019 and 02/22/2018. FINDINGS: Breast Composition: The breasts are almost entirely fatty. There are no dominant masses or suspicious calcifications. No other significant abnormalities are identified. There has been no significant change since the prior study. BI/SCRN MAMM (CAD)W/JENNYFER BILAT IMPRESSION: Stable bilateral screening mammogram. Yearly follow-up mammogram recommended. (A) ASSESSMENT CATEGORY: BIRADS Category 1: Negative. A letter regarding these results will be sent to the patient by the facility within 30 days. Approximately 10% of breast cancers are not detected by mammography. A normal mammogram should not delay biopsy of a clinically suspicious abnormality. [id number] Electronically Signed: Rishabh Kent MD at 14:54 EST ,
== END | disposition home or self-care (01) ==
LOC: OPBI 12:50
PROVIDERS: PCP Family Medicine; Visit Provider Family Medicine
DX: Z00.00 Encounter for general adult medical examination without abnormal findings (principal); Z12.31 Encounter for screening mammogram for malignant neoplasm of breast
CPT/HCPCS: 77063; 77067

== ENCOUNTER → 2022-04-25 | Outpatient (CLI) | payer OTHER, SELFPAY ==
[2022-05-02 13:36] LABS: HPV APTIMA, High Risk Negative (Negative)
[2022-05-02 13:39] LABS: HPV Reflexed? YES, CHARGE PATIENT
== END | disposition home or self-care (01) ==
PROVIDERS: PCP Family Medicine; Visit Provider Nurse Practitioner Family
DX: Z12.4 Encounter for screening for malignant neoplasm of cervix (principal)
CPT/HCPCS: 87624; 88175; G0145

== ENCOUNTER → 2022-07-04 | Outpatient (CLI) | payer OTHER, SELFPAY ==
[2022-07-04 17:37] LABS: Hematocrit 40.1 % (37-47); Hemoglobin 12.2 g/dL (12.0-15.0); Mean Corp Hgb Conc 30.4 g/dL (32-36); Mean Corpuscular Hgb 26.2 pg (27.0-32.0); Mean Corpuscular Volume 86.1 fL (81-99); Mean Platelet Vol. 11.4 fl (6.2-12.0); Platelet Count 242 K/mm3 (150-450); RBC Distribution Width CV 15.3 % (11.6-14.6); RBC Distribution Width SD 47.9 fl (35.1-43.9); Red Blood Count 4.66 M/mm3 (4.2-5.4); White Blood Count 7.2 K/mm3 (4.4-11.0)
[2022-07-04 18:37] LABS: AST(SGOT) 49 U/L (15-37); Alanine Aminotransfer ALT/SGPT 47 U/L (13-56); Albumin, Serum 4.1 g/dL (3.2-5.0); Alkaline Phosphatase 51 U/L (45-117); Anion Gap 7 (5-15); BUN 32 mg/dL (7-18); BUN/Creat Ratio 28.1 RATIO (10-20); Chloride 105 mmol/L (98-107); Creatinine, Serum 1.14 mg/dL (0.55-1.02); EST Glomerular Filtration Rate 52 mL/min (>60); Est Glom Filt Rate - Afr Amer 63 mL/min (>60); Glucose 220 mg/dL (74-106); Potassium 3.8 mmol/L (3.5-5.1); Protein, Total 8.1 g/dL (6.4-8.2); Sodium Level 138 mmol/L (136-145)
[2022-07-04 18:39] LABS: Insulin 23.6 mU/L (2.6-37.6)
[2022-07-06 12:09] LABS: C-Peptide 10.4 ng/mL (1.1-4.4)
== END | disposition home or self-care (01) ==
LOC: MFPLAB 14:19
PROVIDERS: PCP Family Medicine; Visit Provider Family Medicine
DX: E11.65 Type 2 diabetes mellitus with hyperglycemia (principal)
CPT/HCPCS: 36415; 80053; 83525; 84681; 85027

== ENCOUNTER 2022-07-05 09:20 | Outpatient (CLI) | payer OTHER, SELFPAY ==
--- NOTE | 2022-07-05 09:23 | US_ITS ---
STUDY: ABDOMINAL ULTRASOUND - RIGHT UPPER QUADRANT REASON FOR VISIT: Female, 61 years old FATTY LIVER/HEP C TECHNIQUE: Ultrasound evaluation of the right upper quadrant was performed with real-time and static masters-scale imaging. TECHNICAL QUALITY: Adequate. COMPARISON: Comparison is made with prior study dated March 26, 2019. FINDINGS: Liver: The is enlarged and liver measures 23.4 cm. There is increased echogenicity consistent with fatty infiltration. The bile ducts are within normal limits. There is hepatic color flow. The direction of portal flow is hepatopetal. There is a 1.9 cm x 1.7 cm x 1.5 cm hypodense nodule in the left lobe of the liver. Gallbladder: The patient is status post cholecystectomy. Common Bile Duct (C.B.D.): The common bile duct measures 6.7 mm. Pancreas: Normal size of the head, body and tail of the pancreas. There is normal echogenicity of the pancreas. There is no demonstrated pancreatic mass or cyst. Right Kidney: Normal size of the right kidney. The right kidney measures 12.9 cm x 6.6 x 4.6 cm. Normal renal cortex. The right cortex measures 1.5 cm. There is a 1.6 cm x 1.6 cm x 1.5 cm cyst in the inferior aspect of the right kidney. There is no right hydronephrosis. US/Abdomen Limited IMPRESSION: Hepatomegaly and diffuse fatty infiltration of the liver 1.9 cm x 1.7 cm x 1.5 cm hyperechoic solid nodule in the left lobe of the liver. Correlation with a CT scan is recommended. Electronically Signed: Rishabh Kent MD at 12:11 EDT ,
--- NOTE | 2022-07-05 09:23 | US_ITS ---
STUDY: ABDOMINAL ULTRASOUND - ELASTOGRAPHY REASON FOR VISIT: Female, 61 years old. Hepatitis C. Fatty infiltration of the liver TECHNIQUE: Liver stiffness measurements were obtained on a [employer] 85 ultrasound machine using a CA 1-7 probe following the SRU guidelines. 3 measurements were obtained using a 2-D-SWE method. TheIQR/M was 18% suggesting a quality data set. TECHNICAL QUALITY: Adequate. COMPARISON: None. FINDINGS: Liver: There is no demonstrated mass lesion. Median liver stiffness measured 8.3 kPa. Abdomen: There is no demonstrated mass lesion. US/Elastography Parenchyma/Organ IMPRESSION: Liver stiffness measures 8.3 kPa compatible with F2-F3 (Mild to moderate liver fibrosis) Metavir score. Electronically Signed: Rishabh Kent MD at 12:08 EDT ,
== END 2022-07-05 23:59 | disposition home or self-care (01) ==
LOC: US 09:21
PROVIDERS: PCP Family Medicine; Referring Provider Internal Medicine Gastroenterology; Visit Provider Internal Medicine Gastroenterology
DX: K76.0 Fatty (change of) liver, not elsewhere classified (principal); B19.20 Unspecified viral hepatitis C without hepatic coma
CPT/HCPCS: 76705; 76981

== ENCOUNTER → 2022-07-24 | Outpatient (CLI) | payer OTHER, SELFPAY ==
--- NOTE | 2022-07-24 14:45 | CT_ITS ---
INDICATION: pancrease concern, Liver concern ? Give IV contrast also for Live EXAMINATION: CT Abdomen WO/W Contrast Injection TECHNIQUE: Helically acquired images were obtained of the abdomen before and after IV contrast. A radiation dose optimization technique was used for this scan. IV Contrast dosage and agent: Oral Readi-CAT Oral contrast: Oral Readi-CAT. COMPARISON: Ultrasound 07/05/2022 FINDINGS: Visualized lung bases: Unremarkable Liver: Diffusely hypodense consistent with fatty liver. Gallbladder: Unremarkable Spleen: Unremarkable Pancreas: Unremarkable Adrenal Glands: Unremarkable Kidneys: Unremarkable Vasculature: Mild scattered aortoiliac atherosclerotic calcifications. GI Tract: Unremarkable Lymphadenopathy: None Peritoneum: No ascites. Bones/Soft tissues: No suspicious osseous or soft tissue lesions CT/Abdomen W/WO IV Contrast IMPRESSION: No acute abnormalities in the abdomen. Specifically, no suspicious enhancing liver mass. Fatty liver. Electronically Signed: Good Pedraza MD at 19:48 EDT ,
== END | disposition home or self-care (01) ==
LOC: CT 14:40
PROVIDERS: PCP Family Medicine; Referring Provider Family Medicine; Visit Provider Family Medicine
DX: E88.81 Metabolic syndrome and other insulin resistance (principal)
CPT/HCPCS: 74170; Q9967

== ENCOUNTER → 2022-12-08 | Outpatient (CLI) | payer OTHER, SELFPAY ==
--- NOTE | 2022-12-08 14:42 | CT_ITS ---
STUDY: LOW DOSE CT LUNG CANCER SCREENING REASON FOR EXAM: Female, 62 years old. PERSONAL HISTORY OF NICOTINE DEPENDENCE. Patient smoked 20 packs per day for 20 years. RADIATION DOSAGE (If Supplied By Facility): CTDIvol = ( 4.02 ) mGy, DLP = ( 140.94 ) mGycm TECHNIQUE: No contrast was administered. Low dose technique was utilized (average mAS-38 and kVp 120). 1.25 mm axial source images with a slice interval of 1.25-mm were reconstructed in lung windows. 2.5 mm axial source images with a slice interval of 2.5-mm were reconstructed in lung windows. 5.0 mm axial source images with a slice interval of 5.0-mm were reconstructed in soft tissue windows. COMPARISON: Comparison is made with prior study dated November 08, 2021. NODULES: Stable calcified granuloma in the right upper lobe. Emphysema: Mild emphysema. There is a 2.5 cm x 2.4 cm bleb in the right lower lobe. This is unchanged. Endobronchial lesion: None Aorta: Calcified atherosclerotic plaques of the aortic arch. CORONARY ARTERIES: Coronary artery calcification is seen. Heart: Unremarkable Pulmonary artery: Unremarkable Mediastinal nodes: Small benign-appearing mediastinal lymph nodes. Other chest and abdominal findings: CT/Low Dose CT Lung Screening IMPRESSION: Lung-RADS category 2 - Continue annual screening with LDCT in 12 months. IMPORTANT NOTES FOR USE: ACR Lung-RADS Version 1.1 Assessment Categories Release Date: 2018 Category: Coded 0-4 bases on nodule(s) with highest degree of suspicion. Negative screen is defined as categories 1 and 2; a positive screen is defined as categories 3 and 4. Category 3 and 4A nodules that are unchanged on interval CT should be coded as category 2, and individuals returned to screening in 12 months. Category 4X: Category 3 or 4 nodules with additional imaging findings that increase the suspicion of lung cancer, such as spiculation, GGN that doubles in size in 1 year, enlarged lymph notes, etc. Category Modifiers: S (significant finding unrelated to lung cancer) Electronically Signed: Rishabh Kent MD at 14:41 EDT ,
== END | disposition home or self-care (01) ==
LOC: CT 14:41
PROVIDERS: PCP Family Medicine; Referring Provider Internal Medicine Pulmonary Disease; Visit Provider Internal Medicine Pulmonary Disease
DX: Z87.891 Personal history of nicotine dependence (principal)
CPT/HCPCS: 71271

== ENCOUNTER → 2023-04-27 | Outpatient (CLI) | payer OTHER, SELFPAY ==
--- NOTE | 2023-04-27 13:35 | BI_ITS ---
MAMMOGRAPHY - BILATERAL SCREENING 3-D TOMOSYNTHESIS REASON FOR EXAM: Female, 62 years old. SCREENING PERTINENT HISTORY: No significant family history. TECHNIQUE: 2-D mammograms and 3-D Tomosynthesis of the breast (s) were performed. CAD was performed. COMPARISON: 04/18/2022 FINDINGS: The breast composition is composed of scattered fibroglandular density. Scattered benign calcifications are seen. No dense spiculated masses or suspicious microcalcifications are identified. No architectural distortion is identified. There is no skin thickening or retraction. There has been no significant change since the prior study. BI/SCRN MAMM (CAD)W/JENNYFER BILAT IMPRESSION: No mammographic signs of malignancy. Routine yearly mammograms recommended. ASSESSMENT CATEGORY: BIRADS Category 1: Negative. A letter regarding these results will be sent to the patient by the facility within 30 days. FOLLOW UP RECOMMENDATION: Yearly follow up mammogram recommended. (A) Approximately 10% of breast cancers are not detected by mammography. A normal mammogram should not delay biopsy of a clinically suspicious abnormality. Electronically Signed: German Dockery MD at 14:56 EST ,
== END | disposition home or self-care (01) ==
LOC: OPBI 13:35
PROVIDERS: PCP Family Medicine; Referring Provider Family Medicine; Visit Provider Family Medicine
DX: Z12.31 Encounter for screening mammogram for malignant neoplasm of breast (principal)
CPT/HCPCS: 77063; 77067

== ENCOUNTER → 2024-03-29 | Outpatient (CLI) | payer OTHER, SELFPAY ==
[2024-03-29 09:08] LABS: ALB/GLOB Ratio 0.9 RATIO (0.9-2.4); AST(SGOT) 26 U/L (15-37); Alanine Aminotransfer ALT/SGPT 36 U/L (13-56); Albumin, Serum 3.7 g/dL (3.2-5.0); Alkaline Phosphatase 48 U/L (45-117); Anion Gap 7 (5-15); BUN 25 mg/dL (7-18); BUN/Creat Ratio 25.6 RATIO (10-20); Calcium,Total 9.4 mg/dL (8.5-10.1); Chloride 109 mmol/L (98-107); Cholesterol 188 mg/dL (200); Creatinine, Serum 0.98 mg/dL (0.55-1.02); EST Glomerular Filtration Rate 62 mL/min (>60); Est Glom Filt Rate - Afr Amer 74 mL/min (>60); Globulin 3.9 g/dL (2.2-4.2); Glucose 193 mg/dL (74-106); High Density Lipoprotein 44 mg/dL; Potassium 3.9 mmol/L (3.5-5.1); Protein, Total 7.6 g/dL (6.4-8.2); Sodium Level 142 mmol/L (136-145); Triglycerides 220 mg/dL; Very Low Density Lipoprotein 44 mg/dL (5-40)
[2024-03-31 10:09] LABS: Vitamin B12 655 pg/mL (211-911)
== END | disposition home or self-care (01) ==
LOC: LAB 06:55
PROVIDERS: PCP Family Medicine; Referring Provider Family Medicine; Visit Provider Family Medicine
DX: E11.9 Type 2 diabetes mellitus without complications (principal)
CPT/HCPCS: 36415; 80053; 80061; 82607; 84443

== ENCOUNTER → 2024-07-04 | Outpatient (CLI) | payer OTHER, SELFPAY ==
--- NOTE | 2024-07-04 11:54 | BI_ITS ---
EXAM: SCRN MAMM (CAD)W/JENNYFER BILAT 07/04/2024 CLINICAL HISTORY: F, Age 63 y/o , SCREENING TECHNIQUE: Bilateral screening digital breast tomosynthesis with 2D and 3D images. Computer aided detection. COMPARISON: Prior exam(s) dated 04/27/2023, 04/10/2022. FINDINGS: TISSUE DENSITY: The breast tissue is almost entirely fatty. Bilateral Breast Mammographic Findings: No significant masses, calcifications or other abnormalities are identified. BI/SCRN MAMM (CAD)W/JENNYFER BILAT IMPRESSION: Right Breast: BIRADS 1 NEGATIVE. Left Breast: BIRADS 1 NEGATIVE. OVERALL FINAL ASSESSMENT: BIRADS 1 NEGATIVE. RECOMMENDATION: Routine annual follow-up in 1 Year A letter with findings and recommendations will be mailed to the patient. Reading Location: [id number]
== END | disposition home or self-care (01) ==
LOC: OPBI 11:51
PROVIDERS: PCP Family Medicine
DX: Z12.31 Encounter for screening mammogram for malignant neoplasm of breast (principal)
CPT/HCPCS: 77063; 77067

== ENCOUNTER → 2024-07-16 | Outpatient (CLI) | payer OTHER, SELFPAY ==
--- NOTE | 2024-07-16 13:28 | CT_ITS ---
PROCEDURE: LOW DOSE CT LUNG SCREENING 07/16/2024 REASON FOR EXAM: NICOTINE DEP Patient has smoked 2 packs per day for 20 years. TECHNIQUE: Low Dose CT Lung screening without contrast. Coronal and Sagittal reconstruction series were provided. One or more dose reduction techniques were used (e.g., Automated exposure control, adjustment of the mA and/or kV according to patient size, use of iterative reconstruction technique). REFERENCE LINK: [employer] Lung-RADS RADIATION DOSE SUMMARY: CTDlvol: 3.18 mGy DLP: 107.22 mGycm COMPARISON: Prior study dated December 08, 2022. FINDINGS: PULMONARY NODULES: (Only nodules >3mm are reported) Nodules described below are on series 1 unless otherwise specified. Pulmonary Nodules: No suspicious nodules are seen. Hardware:None Lymph Nodes:No significant lymph nodes are present. Heart and Vasculature:Coronary artery calcifications are noted. Coronary Artery Calcifications: Present Lungs and Airways: Mild emphysematous changes are present. Stable 2.5 cm 2.4 cm bleb in the right lower lobe. Pleura:No pleural effusion. Upper Abdomen:Unremarkable Bones:Degenerative changes of the thoracic spine. CT/Low Dose CT Lung Screening IMPRESSION: No suspicious nodule seen. Stable examination. Coronary artery calcification (CAC) is is present Lung-RADS Category: 2 BENIGN (BASED ON IMAGING FEATURES OR INDOLENT BEHAVIOR). RECOMMEND 12-MONTH SCREENING LDCT. Other Significant Findings: None. Reading Location: [facility]
== END | disposition home or self-care (01) ==
PROVIDERS: PCP Family Medicine; Referring Provider Internal Medicine Pulmonary Disease; Visit Provider Internal Medicine Pulmonary Disease
DX: Z12.2 Encounter for screening for malignant neoplasm of respiratory organs (principal); Z87.891 Personal history of nicotine dependence
CPT/HCPCS: 71271